=== PATIENT | male | born 1990 | race Caucasian/White ===

== ENCOUNTER → 2018-06-21 16:27 | Outpatient (CLI) | payer BC, SELFPAY ==
[2018-06-21 17:12] LABS: Absolute Neutrophil Count 5.2 X10^3/uL (2.0-7.7); Basophil# 0.05 X10^3/uL; Basophil% 0.5 % (0-1); Eosinophil# 0.19 X10^3/uL; Hematocrit 45.6 % (40-54); Hemoglobin 14.9 g/dl (13.0-16.5); Lymphocyte % 30.9 % (19-41); Mean Corp Hgb Conc 32.7 g/gl (32-36); Mean Corpuscular Hgb 29.2 pg (27.0-32.0); Mean Corpuscular Volume 89.4 fL (80-94); Mean Platelet Vol. 10.7 fl (6.2-12.0); Monocyte# 0.97 X10^3/uL; Monocyte% 10.4 % (0-10); Neutrophil # 5.24 X10^3/uL (2.7-7.7); Platelet Count 220 K/mm3 (150-450); RBC Distribution Width CV 13.3 % (11.6-14.6); RBC Distribution Width SD 43.4 fl (35.1-43.9); White Blood Count 9.4 K/mm3 (4.4-11.0)
[2018-06-21 17:16] LABS: POSITIVE COUNT NO; POSITIVE DIFFERENTIAL NO; POSITIVE MORPHOLOGY NO
[2018-06-21 17:37] LABS: ALB/GLOB Ratio 1.1 RATIO (0.9-2.4); AST(SGOT) 21 U/L (15-37); Alanine Aminotransfer ALT/SGPT 49 U/L (16-61); Alkaline Phosphatase 106 U/L (45-117); Anion Gap 9 (5-15); BUN 11 mg/dL (7-18); BUN/Creat Ratio 10.9 RATIO (10-20); Calcium,Total 8.3 mg/dL (8.5-10.1); Chloride 109 mmol/L (98-107); Creatinine, Serum 1.01 mg/dL (0.70-1.30); EST Glomerular Filtration Rate 93 mL/min (>60); Est Glom Filt Rate - Afr Amer 112 mL/min (>60); Globulin 3.6 g/dL (2.2-4.2); Glucose 95 mg/dL (74-106); Protein, Total 7.6 g/dL (6.4-8.2); Sodium Level 142 mmol/L (136-145); T4 Free Direct 0.97 ng/dL (0.76-1.46); Thyroid Stim Hormone (TSH) 0.74 uIU/mL (0.358-3.74)
[2018-06-23 09:26] LABS: Vitamin D,25 Hydroxy 19.1 ng/mL (29.95-100.01)
== END ==
PROVIDERS: Visit Provider Nurse Practitioner
DX: F41.9 Anxiety disorder, unspecified (principal); R53.83 Other fatigue
CPT/HCPCS: 80053; 82306; 84439; 84443; 85025

== ENCOUNTER → 2018-07-12 16:47 | Outpatient (CLI) | payer BC, SELFPAY ==
[2018-07-12 17:21] LABS: Bilirubin, Direct 0.16 mg/dL (0.00-0.30)
== END ==
PROVIDERS: Visit Provider Nurse Practitioner
DX: R53.83 Other fatigue (principal); R89.9 Unspecified abnormal finding in specimens from other organs, systems and tissues
CPT/HCPCS: 82247; 82248